=== PATIENT | female | born 1940 | race Caucasian/White ===

== ENCOUNTER → 2018-01-27 | Outpatient (CLI) | payer OTHER ==
[~2018-01-27] VITALS: Ht 152.4 cm; Wt 106.6 kg
[~2018-01-27] MED LIST: BETIMOL5 ML OPHTHALMIC; CENTRUM SILVER1 EAC4 PO; CENTRUM SILVER1 EACH PO; CLOTRIMAZOLE 1%15 G1 TOP; DIOVAN HCT 3201 EACH PO; FISH OIL 1,001000 M2 PO; HYDROCHLOROTH12.5 M1 PO; IBUPROFEN 800800 M1; IBUPROFEN 800800 M1 PO; KEFLEX500 M1 PO; LIPITOR10 MG PO; NEXIUM40 MG PO; VITAMIN B-1100 M1 PO; VITAMIN D1000 UNI1 PO; XALATAN2.5 ML OPHTHALMIC
--- NOTE | ~2018-01-27 | P ---
[facility] [place] [address] PROCEDURE REPORT Name: ARTHURCESAR MOSS Room #: REG [facility]#: [id number] Admission: 01/27/18 Attend Phys: Owen Bruner MD Discharge: Date of : 40 Report #: [id number] THIS REPORT FOR: //name// CC: Owen Vogel MD DATE OF SERVICE: 01/27/2018 BRIEF HISTORY: The patient is a 77-year-old woman with a history of colon polyps for a high risk screening colonoscopy. PREOPERATIVE DIAGNOSIS: High risk screening colonoscopy. POSTOPERATIVE DIAGNOSES: 1. Diminutive polyp, proximal ascending colon. 2. Moderate left-sided diverticulosis coli. MEDICATIONS: Monitored anesthesia care per anesthesia. SPECIMEN: Proximal ascending colon polyp. ESTIMATED BLOOD LOSS: 3 mL. PROCEDURE: Colonoscopy to cecum and terminal ileum with biopsy. FINDINGS: Prior to propofol sedation, procedure of colonoscopy was discussed with the patient as well as potential risks and its complications. She indicates she understands and desires to proceed. DESCRIPTION OF PROCEDURE: With the patient in left lateral decubitus position, digital examination was completed, which revealed no abnormalities. Subsequently, the Qminder video colonoscope was introduced in the rectum, advanced under direct vision to the cecum. Done with minimal difficulty. The cecum was identified by the ileocecal valve and appendiceal orifice. I was able to visualize the distal segment of terminal ileum, which was inspected and noted to be unremarkable. At that point, the scope was slowly withdrawn and careful circumferential views obtained. Upon slow withdrawal of the scope, the prep was generally good. There was some bilious material remained and it had to be washed and suctioned away. The mucosa was within normal limits, normal vascular pattern, normal light reflex. As we withdrew the scope, a diminutive polyp was seen and removed by biopsy from the proximal ascending colon. The scope was withdrawn. No additional polypoid lesions were seen. However, as we withdrew the scope into the left colon, in particular the descending colon, she was noted to have diverticular disease which is most prominent in the distal sigmoid colon with moderately severe diverticular disease, but no evidence of diverticulitis. [facility] [address] [place] [address] PROCEDURE REPORT Name: CESAR GIBSON Curly Room #: REG [facility].#: [id number] Admission: 01/27/18 Attend Phys: Owen Bruner MD Discharge: Date of : 40 Report #: [id number] The scope was further withdrawn and no additional abnormalities were seen. The scope was withdrawn in the rectum and no abnormalities were seen. Upon retroflexion, no abnormalities were noted. Scope was withdrawn. The patient tolerated the procedure well. CONDITION OF THE PATIENT UPON DISCHARGE: Following procedure, the patient drowsy, arousable, conversant and will be discharged to home when fully ambulatory. INSTRUCTIONS TO THE PATIENT AND FAMILY AT THE TIME OF DISCHARGE: One diminutive polyp identified and removed as described above. We will follow up on the pathology of this polyp. If this is an adenoma, she should consider followup colonoscopy in 5 years. However, I would base that on her overall health status at that point in time. If it is not an adenoma, then it is not likely that she would benefit from continued routine screening colonoscopy. She returned to care of Dr. Milton Vogel and return to see me as needed. Last colonoscopy was more than 5 years ago. Withdrawal time from the cecum was 11 minutes 39 seconds. <ELECTRONICALLY SIGNED> By: Owen Bruner MD 01/31/18 1639 0953 1241 Owen Bruner MD /nt
--- NOTE | ~2018-01-27 | P ---
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 She has reflux disease as well. She reports that she often does not have typical burning symptoms, although they occur from time to time. She has not been consistent with her Nexium recently. She now complains of hoarseness and change in her voice. She also reports intermittent solid food dysphagia. PREOPERATIVE DIAGNOSES: Aguirre's esophagus with worsening reflux symptoms and changes in voice. POSTOPERATIVE DIAGNOSES: 1. Aguirre esophagus. 2. 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 3. Moderate erosive gastritis, antrum and body. 4. Small hiatus hernia. 5. Stricture/ring, proximal esophagus. 6. Grade A esophagitis. 7. Nonerosive duodenitis MEDICATIONS: Deep sedation with propofol per anesthesia. SPECIMENS: 1. Biopsies of gastritis. 2. Biopsies of Aguirre. 3. Biopsy of proximal esophagus. ESTIMATED BLOOD LOSS: 3 mL. PROCEDURE: EGD with biopsy. FINDINGS: Prior to propofol sedation, the procedure of upper endoscopy discussed with the patient as well as potential risks, benefits, and complications. She indicates she understands and desires to proceed. With the patient in left lateral decubitus position, the Fuji video endoscope was inserted in the cervical esophagus under direct vision without difficulty. Examination of this organ through its entire length revealed a mild stricture in the proximal esophagus at about 22 cm. It is interesting to note that there was gastric type epithelium involving the entire circumference and was about a 5 cm length. This may be heterotopic gastric epithelium. The stricture had a smooth [facility] [address] [place] [address] PROCEDURE REPORT Name: CESAR GIBSON Curly Room #: REG [facility]#: [id number] Admission: 01/27/18 Attend Phys: Owen Bruner MD Discharge: Date of : 40 Report #: [id number] and benign appearance and biopsies were obtained. It was relatively mild. I advanced the scope distally. The esophageal mucosa was normal. Down to the distal esophagus where a short segment Aguirre esophagus was seen. The mucosa was flat. No ulcers, nodules or masses were seen. In addition, a small hiatus hernia was seen. Multiple biopsies were obtained. The scope was advanced in the stomach, which was examined on end view as well as retroflexed views. There was a pattern of diffuse gastritis with erosions in the distal body of the antrum. No ulcers were seen. Active bleeding was not seen. On retroflexion, no mass lesions were seen. Biopsies were obtained of the gastritis. The pylorus was normal. Examination of duodenal bulb revealed some patchy erythema, but no ulcers were seen. The postbulbar duodenal sweep was unremarkable. At that point, the scope was slowly withdrawn and careful circumferential views confirmed the above findings. She was subsequently dilated with passage of 52-Setswana Santos dilator without resistance. She did have mild erosive changes at the margin of the Aguirre with the esophageal mucosa and also a linear erosion along the stricture in the proximal esophagus. CONDITION OF THE PATIENT UPON DISCHARGE: Following procedure, the patient drowsy. She was then prepared for colonoscopy. INSTRUCTIONS TO THE PATIENT AND FAMILY AT THE TIME OF DISCHARGE: She has evidence of stricturing/ring in the proximal esophagus. This may be related heterotopic gastric epithelium. She was noted to have mild esophagitis, grade A along the margin of the Aguirre esophagus and also along the ring in the proximal esophagus. She should resume her Nexium 40 mg daily. We will follow up on biopsies and make further recommendations. She should return for dilation on an as needed basis. <ELECTRONICALLY SIGNED> By: Owen Bruner MD 01/31/18 1639 0920 1208 Owen Bruner MD /nt
== END | disposition home or self-care (01) ==
LOC: GI 07:32
DX: Z12.11 Encounter for screening for malignant neoplasm of colon (principal); D12.2 Benign neoplasm of ascending colon; K31.9 Disease of stomach and duodenum, unspecified; K21.0 Gastro-esophageal reflux disease with esophagitis; K57.30 Diverticulosis of large intestine without perforation or abscess without bleeding; K44.9 Diaphragmatic hernia without obstruction or gangrene; K29.00 Acute gastritis without bleeding; K22.2 Esophageal obstruction; K29.80 Duodenitis without bleeding; I10 Essential (primary) hypertension; E78.00 Pure hypercholesterolemia, unspecified; J43.9 Emphysema, unspecified; Z85.828 Personal history of other malignant neoplasm of skin; K21.9 Gastro-esophageal reflux disease without esophagitis; H40.9 Unspecified glaucoma; Z87.442 Personal history of urinary calculi; Z96.653 Presence of artificial knee joint, bilateral; Z86.010 Personal history of colon polyps; Z88.0 Allergy status to penicillin; Z88.8 Allergy status to other drugs, medicaments and biological substances; Z79.899 Other long term (current) drug therapy; Z98.890 Other specified postprocedural states; Z91.041 Radiographic dye allergy status
CPT/HCPCS: 62110; 62900

== ENCOUNTER → 2020-05-29 | Outpatient (CLI) | payer OTHER ==
[~2020-05-29] MED LIST changes: +ESTRACE42.5 GM VAG; +LOSARTAN-HCTZ1 EAC3 PO; +METHENAMINE HIPP1 G1 PO; +NYSTATIN15 G3 TOP; +PEPCID20 MG PO; +VITAMIN D3125 MC2 PO; +[UNRECOGNIZED DRUG - OTHER] OPHTHALMIC
== END ==
LOC: LAB 10:32
PROVIDERS: ATTEND Specialist
DX: Z01.812 Encounter for preprocedural laboratory examination (principal); Z20.828 Contact with and (suspected) exposure to other viral communicable diseases

== ENCOUNTER → 2020-06-03 | Outpatient (CLI) | payer OTHER ==
[~2020-06-03] VITALS: Ht 147.3 cm; Wt 102.1 kg
--- NOTE | 2020-06-03 10:09 | P ---
[facility] [place] [address] PROCEDURE REPORT Name: CESAR GIBSON Room #: REG [facility]#: [id number] Admission: 06/03/20 Attend Phys: Owen Bruner MD Discharge: Date of : 40 Report #: [id number] THIS REPORT FOR: cc: Milton Vogel MD, Michael S. MD Thesing, John A. MD ~ CC: Owen Vogel MD OUTPATIENT UPPER ENDOSCOPY BRIEF HISTORY: The patient is a 79-year-old woman with questionable history of Aguirre esophagus. She has a diagnosis of Aguirre's, but last examination several years ago, the biopsies were negative for Aguirre mucosa. She presents for followup of possible Aguirre's as well as recurrent solid food dysphagia. PREOPERATIVE DIAGNOSIS: Questionable history of Aguirre esophagus and solid food dysphagia. POSTOPERATIVE DIAGNOSES: 1. Erosive bulbar duodenitis. 2. Diffuse chronic gastritis. 3. A 3 cm sliding type hiatus hernia. 4. Questionable reflux esophagitis versus Aguirre's, distal esophagus. 5. Mild proximal esophageal ring. 6. 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 MEDICATIONS: Deep sedation with propofol per anesthesia. SPECIMENS: 1. Biopsies of antrum to rule out H. pylori. 2. Biopsy of distal esophagus, rule out Aguirre's versus esophagitis. ESTIMATED BLOOD LOSS: 3 mL. PROCEDURE: EGD with biopsy, Santos dilation. FINDINGS: Prior to propofol sedation, procedure of upper endoscopy was discussed with the patient as well as potential risks and its complications. She indicates she understands and desires to proceed. DESCRIPTION OF PROCEDURE: With lateral decubitus position, the Olympus video endoscope was inserted in the cervical esophagus under direct vision without difficulty. Examination of this organ through its entire length revealed normal esophageal mucosa in the proximal esophagus; however, in particular upon withdrawal of the scope, mild ring was seen. Also, heterotopic gastric [facility] [address] [place] [address] PROCEDURE REPORT Name: CESAR GIBSON Curly Room #: REG [facility]#: [id number] Admission: 06/03/20 Attend Phys: Owen Bruner MD Discharge: Date of : 40 Report #: [id number] epithelium, which had been previously biopsied in the past was again seen. I did not see ulcers or erosions in the proximal esophagus. Beyond this level down to the distal esophagus, the mucosa was within normal limits, normal vascular pattern, normal light reflex. The scope was advanced distally, the squamocolumnar junction was very irregular. There were 2-3 narrow tongues and 1 broad tongue of possible Aguirre mucosa extending about 2-3 cm in distal esophagus. The mucosa was examined with wide as well as narrow banded imaging. No raised lesions, ulcers or strictures were seen involving the submucosa. Multiple biopsies were obtained. This may represent Aguirre's, but it also may represent esophagitis. The scope was further advanced and a 3 cm sliding type hiatus hernia was encountered. The mucosa in the hernia was unremarkable. The scope was advanced fully into the stomach, was examined on end view as well as retroflexed views. There was a pattern of diffuse chronic gastritis. No ulcers or erosions were seen. Upon retroflexion, no mass lesions were seen. Examination of duodenal bulb revealed diffuse erythema and several erosions without evidence of bleeding. These had white exudate, but they were shallow and considered to be erosions and not ulcers because they ___. Beyond the duodenal bulb, the mucosa was within normal limits. At that point, the scope was slowly withdrawn and careful circumferential views, confirmed the above findings. The patient tolerated the procedure well. After the scope was withdrawn, passage of a 50-Botswanan Santos dilator, which was done without difficulty. The patient tolerated the procedure well. CONDITION OF THE PATIENT UPON DISCHARGE: Following procedure, the patient was drowsy and arousable. She will be discharged home when fully ambulatory. INSTRUCTIONS TO THE PATIENT AND FAMILY AT THE TIME OF DISCHARGE: This patient comes today for followup of Aguirre esophagus. She has had reflux disease in the past. Also on her previous endoscopy, biopsies of the proximal esophagus revealed evidence of reflux esophagitis. She has had symptoms of hoarseness in the shelter. Due to reports she saw on the news, she stopped taking her PPI and has been using only famotidine. I am concerned that the findings in the distal esophagus represent a significant reflux esophagitis. I also of concern that her hoarseness is related to reflux. At this point, I would suggest she start pantoprazole 40 mg twice daily. I suggest followup in the office for discussion and recommendations for long-term management of reflux disease. We will follow up on the biopsies, which were obtained today. She may need followup evaluation depending on biopsies. In addition, she will return for dilation on an as needed basis due to symptoms of recurrent dysphagia. Also, we will discuss with her PPIs in view of the erosive changes in the duodenal bulb. [facility] [address] [place] [address] PROCEDURE REPORT Name: CESAR GIBSON Room #: REG [facility] Brad#: [id number] Admission: 06/03/20 Attend Phys: Owen Bruner MD Discharge: Date of : 40 Report #: [id number] If she does have evidence of H. pylori, she may benefit from antibiotic treatment. <ELECTRONICALLY SIGNED> By: Owen Bruner MD 06/03/20 1009 0820 0858 Owen Bruner MD /nt
--- NOTE | 2020-06-04 17:07 | PATH ---
[facility] [place] [address] PATHOLOGY RPT PROCEDURE Name: JENNIFER GIBSON Room #: REG DAG[facility]ERTO Tremaine#: [id number] Admission: 06/03/20 Date of : 40 Discharge: Report #: [id number] Path Case #: [id number] [facility] Accession Number: [id number] . 01 Material submitted: . PART A: stomach - BX OF GASTRITIS PART B: esophagus - BX OF DISTAL ESOPHAGUS. Modifiers: distal . 01 Clinical history: . A. R/O H PYLORI B. QUESTIONABLE HX OF BRADLEY'S, R/O BRADLEY'S . 02 Diagnosis: A. Gastric mucosa, gastritis, rule out Helicobacter pylori, endoscopic biopsy: - Mild reactive gastropathy. - Negative for intestinal metaplasia or atrophy. - Negative for Helicobacter pylori (properly controlled immunohistochemical stain performed). . B. 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 - Negative for dysplasia. - Squamous mucosa with mild esophagitis. (IUV:pit 06/04/2020) . QTP 06/04/2020 1525 Local . 02 Comment: B. The above diagnosis of Bradley's esophagus is made due to presence of intestinal metaplasia and with the assumption that the biopsies were obtained from the columnar mucosa in the distal esophagus located at least 1 cm proximal to the top of the gastric folds as per the 2016 ACG guidelines. (IUV:pit 06/04/2020) . 02 Electronically signed: . Ann Jason MD, Pathologist NPI- [id number] . 01 Gross description: . A. The specimen is received in formalin, labeled "Jennifer Gibson, biopsy of gastritis, R/O H. pylori". Received are three segments of pale uriarte soft tissue ranging in size from 0.3 to 0.6 cm in maximum dimensions. The specimen is submitted entirely in [place] [address] PATHOLOGY RPT PROCEDURE Name: JENNIFER GIBSON Room #: REG [facility].#: [id number] Admission: 06/03/20 Date of : 40 Discharge: Report #: [id number] Path Case #: [id number] B. The specimen is received in formalin, labeled "Jennifer Gibson, biopsy of distal esophagus, questionable history of Bradley's, R/O Bradley's". Received are three segments of pale uriarte soft tissue ranging in size from 0.4 to 0.7 cm in maximum dimensions. The specimen is submitted entirely in cassette B1. (CAA; 06/03/2020) QAC/QAC 06/03/2020 1710 Local . 02 Pathologist provided ICD-10: K31.9, K22.70 . 02 CPT . 925315, 167561, B30834 Specimen Comment: A courtesy copy of this report has been sent to [phone] Specimen Comment: [phone] Specimen Comment: Report sent to / DR MURPHY Performed at: [address] [facility], [place] [id number] MD Jasper Blevins MD Phone: [phone] Performed at: [address] [id number] MD Ann Jason MD Phone: [phone]
== END | disposition home or self-care (01) ==
LOC: GI 06:29
PROVIDERS: ATTEND Specialist
DX: K22.70 Barrett's esophagus without dysplasia (principal); K29.50 Unspecified chronic gastritis without bleeding; K29.80 Duodenitis without bleeding; K31.9 Disease of stomach and duodenum, unspecified; K44.9 Diaphragmatic hernia without obstruction or gangrene; K22.2 Esophageal obstruction; K21.9 Gastro-esophageal reflux disease without esophagitis; I10 Essential (primary) hypertension; E78.00 Pure hypercholesterolemia, unspecified; J43.9 Emphysema, unspecified; H40.9 Unspecified glaucoma; Z79.899 Other long term (current) drug therapy; Z98.890 Other specified postprocedural states; Z85.828 Personal history of other malignant neoplasm of skin; Z87.442 Personal history of urinary calculi; Z96.653 Presence of artificial knee joint, bilateral; Z86.010 Personal history of colon polyps; Z91.041 Radiographic dye allergy status; Z88.0 Allergy status to penicillin; Z88.8 Allergy status to other drugs, medicaments and biological substances
CPT/HCPCS: 62110; 62900

== ENCOUNTER → 2021-08-27 | Outpatient (CLI) | payer OTHER ==
[~2021-08-27] VITALS: Ht 149.9 cm; Wt 105.7 kg
[~2021-08-27] MED LIST changes: +ESOMEPRAZOLE MA40 MG PO; +FISH OIL 1,0001 EAC9 PO; +LATANOPROST 0.2.5 ML OPHTHALMIC; +VITAMIN C1000 MG PO; +VITAMIN D325 MC3 PO
--- NOTE | 2021-08-28 15:08 | PATH ---
[facility] [address] [address] [place] [address] PATHOLOGY RPT PROCEDURE Name: JENNIFER GIBSON Room #: REG [facility] Jez.#: [id number] Admission: 08/27/21 Date of : 40 Discharge: Report #: [id number] Path Case #: [id number] [facility] Accession Number: [id number] . 01 Material submitted: . esophagus - DISTAL ESOPHAGUS HX OF BRADLEY'S. Modifiers: distal . 01 Clinical history: . ESOPHAGOGASTRODUODENOSCOPY HX OF BRADLEY'S BRADLEY'S, ESOPHAGITIS, HIATAL HERNIA . 02 Diagnosis: Distal esophagus, biopsy: - Bradley's esophagus. - Negative for dysplasia or malignancy. (ANK/db; 08/28/2021) LBQ 08/28/2021 1037 Local . 02 Electronically signed: . Antonella Gonzalez MD, Pathologist NPI- [id number] . 01 Gross description: . The specimen is received in formalin, labeled "Jennifer Gibson, distal esophagus, Hx of Bradley's". Received are 2 segments of pale uriarte tissue both measuring 0.3 cm in maximum dimension. The specimen is entirely submitted in cassette A1. ([facility]; 08/27/2021) NRI/NRI 08/27/2021 2159 Local . 02 Pathologist provided ICD-10: K22.70 . 02 CPT . 128618 Specimen Comment: A courtesy copy of this report has been sent to [phone] Specimen Comment: [phone] Specimen Comment: Report sent to / DR MURPHY Specimen Comment: A duplicate report has been generated due to demographic updates. Performed at: [address] [id number] MD Maxime Francis MD Phone: [phone] Performed at: [address] [address] PATHOLOGY RPT PROCEDURE Name: JENNIFER GIBSON [facility] [id number] Admission: 08/27/21 Date of : 40 Discharge: Report #: [id number] Path Case #: [id number] [address] [id number] MD Ann Jason MD Phone: [phone]
--- NOTE | 2021-09-03 08:13 | P ---
[facility] [place] [address] PROCEDURE REPORT Name: CESAR GBISON Room #: REG Courtney Penaloza#: [id number] Admission: 08/27/21 Attend Phys: Obey Barbour Discharge: Date of : 40 Report #: [id number] THIS REPORT FOR: cc: Milton Vogel MD, Michael S. MD McElhinney, Christian C. MD ~ cc: Milton Vogel MD DATE OF SERVICE: 08/27/2021 PROCEDURE PERFORMED: Upper endoscopy with biopsies and esophageal dilation. HISTORY OF PRESENT ILLNESS: The patient is an 80-year-old female with a history of Aguirre's esophagus. Last upper endoscopy with biopsies was in 2019. She is on Nexium b.i.d. However, has not been taking this medicine for the last week. She does report intermittent dysphagia. She has had previous dilations in the past, which are helpful. DESCRIPTION OF PROCEDURE: The risks and benefits of the procedure were explained to the patient, those risks including but not limited to bleeding, perforation and the risk of sedation. She understood these risks and gave informed consent. Because of her history of bilateral knee replacement and possible history of infection after an endoscopy in the past, the patient was given 2 grams of Ancef prior to the procedure. Sedation was given using propofol per anesthesia. Next, using a standard Olympus upper endoscope, the scope was placed in the patient's mouth and advanced under direct vision through the esophagus, stomach and into the second portion of the duodenum. The larynx was normal in appearance. An inlet patch was noted in the proximal esophagus. The mid esophagus was normal. In the distal esophagus, a short segment of Aguirre's esophagus was noted. Multiple biopsies were obtained. Also noted was grade A erosive esophagitis. Upon entering the stomach, a small hiatal hernia was noted. Overall, the gastric mucosa was normal. The pylorus was normal and patent. The duodenal bulb, first and second portion were all normal. The scope was then brought back up into the patient's stomach and a Savary guidewire was inserted through the scope, leaving the guidewire in place as the scope was then withdrawn. Next, a 48-Sami Savary dilation of the esophagus was then performed without difficulty. The wire and dilator removed. The scope was reintroduced into the patient's stomach. There was no evidence of mucosal tear after dilation. The scope was then withdrawn and the procedure terminated. The patient tolerated the procedure well. IMPRESSION: 1. Short segment Aguirre's esophagus. 2. Grade A erosive esophagitis. 3. Small hiatal hernia. 4. Otherwise, normal upper endoscopy. [address] [address] PROCEDURE REPORT Name: CESAR GIBSON Room #: REG DAG[facility]O Penaloza#: [id number] Admission: 08/27/21 Attend Phys: Obey Barbour Discharge: Date of : 40 Report #: [id number] RECOMMENDATIONS: 1. Await biopsy results. 2. Would recommend continuing a PPI on a daily basis. 3. Observe the patient post-dilation. Thank you for allowing me to participate in her care. <ELECTRONICALLY SIGNED> By: Obey Lopez MD 09/03/2113 0859 Obey Lopez MD /nt
== END | disposition home or self-care (01) ==
LOC: GI 07:07
PROVIDERS: ATTEND Specialist
DX: R13.19 Other dysphagia (principal); K22.70 Barrett's esophagus without dysplasia; K44.9 Diaphragmatic hernia without obstruction or gangrene; I10 Essential (primary) hypertension; E78.00 Pure hypercholesterolemia, unspecified; K21.9 Gastro-esophageal reflux disease without esophagitis; J43.9 Emphysema, unspecified; H40.9 Unspecified glaucoma; Z98.890 Other specified postprocedural states; Z79.899 Other long term (current) drug therapy; Z85.828 Personal history of other malignant neoplasm of skin; Z98.41 Cataract extraction status, right eye; Z20.822 Contact with and (suspected) exposure to COVID-19; Z98.42 Cataract extraction status, left eye; Z96.653 Presence of artificial knee joint, bilateral; Z86.010 Personal history of colon polyps; Z91.041 Radiographic dye allergy status; Z88.8 Allergy status to other drugs, medicaments and biological substances
CPT/HCPCS: 62110; 62900